=== PATIENT | female | born 1980 | race Caucasian/White ===

== ENCOUNTER 2017-10-29 04:02 | Emergency (ER) | payer SELFPAY ==
[~2017-10-29] VITALS: Ht 154.9 cm; Wt 57.6 kg
--- NOTE | 2017-10-29 04:53 | NUR ---
Dr. Quick at bedside for MSE.
[2017-10-29] MEDS: DICYCLOMINE HCL 10 MG/5 ML UDC LIQ PO ONE (05:02)
[2017-10-29] MEDS ORDERED: DICYCLOMINE HCL 10 MG/5 ML UDC LIQ ONE (05:03)
--- NOTE | 2017-10-29 05:10 | NUR ---
Patient discharged to home in stable conditon. Patient states she is feeling better. Written and verbal after care instructions given. Patient verbalizes understanding of instructions. Patient ambulated out of ER with steady gait, no acute signs of distress, VSS, all belongings taken.
[2017-10-29 05:12] VITALS: BP 112/63
== END 2017-10-29 05:12 | disposition home or self-care (01) ==
LOC: ER 04:08
DX: R10.9 Unspecified abdominal pain (principal); F41.9 Anxiety disorder, unspecified; Z88.8 Allergy status to other drugs, medicaments and biological substances; Z88.5 Allergy status to narcotic agent
CPT/HCPCS: 99284; A4663

== ENCOUNTER 2019-03-03 12:22 | Emergency (ER) | payer BC ==
[~2019-03-03] VITALS: Ht 154.9 cm; Wt 54.9 kg
[2019-03-03] MEDS ORDERED: IBUPROFEN 600 MG TABLET PO ONE (13:00)
[2019-03-03] MEDS ORDERED: IBUPROFEN 600 MG TABLET ONE ×2 (13:07→13:20)
--- NOTE | 2019-03-03 13:28 | NUR ---
Patient discharged to home in stable conditon. Written and verbal after care instructions given. Patient verbalizes understanding of instructions.
[2019-03-03 13:32] LABS: *URINE HCG, QUAL NEGATIVE (NEGATIVE)
== END 2019-03-03 13:28 | disposition home or self-care (01) ==
LOC: ER 12:22
DX: S13.4XXA Sprain of ligaments of cervical spine, initial encounter (principal); S33.5XXA Sprain of ligaments of lumbar spine, initial encounter; M79.10 Myalgia, unspecified site; R51 Headache; M79.601 Pain in right arm; Z88.8 Allergy status to other drugs, medicaments and biological substances; V49.9XXA Car occupant (driver) (passenger) injured in unspecified traffic accident, initial encounter; Y93.89 Activity, other specified; Y92.89 Other specified places as the place of occurrence of the external cause; Y99.8 Other external cause status
CPT/HCPCS: 84703; A4663

== ENCOUNTER 2021-11-28 17:48 | Emergency (ER) | payer BC, OTHER ==
[~2021-11-28] VITALS: Ht 154.9 cm; Wt 56.7 kg
[2021-11-28] MEDS ORDERED: LIOT5TAB11 PO (18:30)
[2021-11-28] MEDS ORDERED: ESCI5TAB PO (18:30)
[2021-11-28] MEDS ORDERED: ONDANSETRON 4 MG/2 ML VIAL ONE (19:12)
[2021-11-28] MEDS ORDERED: ONDANSETRON 4 MG/2 ML VIAL IV ONE (19:15)
[2021-11-28] MEDS ORDERED: IV NORMAL SALINE 1000 ML BAG IV ONE ×2 (19:15→21:30)
[2021-11-28] MEDS ORDERED: diphenhydrAMINE 50 MG/1 ML VIAL ONE (19:42)
[2021-11-28] MEDS ORDERED: diphenhydrAMINE 50 MG/1 ML VIAL IV ONE (19:45)
[2021-11-28 19:59] LABS: *BILIRUBIN,URIN NEGATIVE (NEGATIVE); *BLOOD, URINE NEGATIVE (NEGATIVE); *CLARITY,URINE CLEAR (CLEAR); *COLOR,URINE YELLOW (YELLOW); *KETONES,URINE NEGATIVE (NEGATIVE); *UROBILINOGEN,URINE 0.2 E.U./dl (NORMAL); LEUKOCYTE ESTERASE ,URINE NEGATIVE (NEGATIVE); NITRITE, URINE NEGATIVE (NEGATIVE); UGLUCOSE NEGATIVE (NEGATIVE)
[2021-11-28 20:06] LABS: HEMATOCRIT 36.1 % (31.2-41.9); MEAN CORPUSCULAR HEMOGLOBIN 30.8 uug (24.7-32.8); MEAN CORPUSCULAR VOLUME 90.3 fL (75.5-95.3); PLATELET COUNT (AUTO) 157 K/uL (179-408)
[2021-11-28 20:08] LABS: *URINE HCG, QUAL NEGATIVE (NEGATIVE)
[2021-11-28 20:26] LABS: CREATININE 0.9 mg/dL (0.6-1.3); POTASSIUM 4.4 mmol/L (3.5-5.1)
[2021-11-28 20:32] LABS: BILIRUBIN,DIRECT 0.1 mg/dL (0.0-0.2); BILIRUBIN,TOTAL 0.3 mg/dL (0.2-1.0); TOTAL PROTEIN, SERUM 6.9 g/dL (6.4-8.2)
[2021-11-28] MEDS ORDERED: IOHEXOL 300MG/ML 100 ML INFUS..BTL ONE (20:39)
[2021-11-28] MEDS ORDERED: IV NORMAL SALINE 250 ML IV ONE (20:40)
[2021-11-28] MEDS ORDERED: SWABABLE VALVE TRANSFER SET EA MC ONE (20:40)
[2021-11-28] MEDS ORDERED: DICY20TA11 PO (21:56)
[2021-11-28] MEDS ORDERED: ONDA4TAB5 PO (21:56)
[2021-11-28] MEDS ORDERED: OXYC-128 PO (22:04)
--- NOTE | 2021-11-28 22:09 | NUR ---
Patient discharged to home in stable condition. Written and verbal after care instructions given. Patient verbalizes understanding of instructions. Stressed follow up or return to ER for worsening s/s. pt ambulated with steady gait. denies pain. no SOB. no chest pain. AOx4
[2021-11-28 23:18] VITALS: BP 109/71
== END 2021-11-28 22:12 | disposition home or self-care (01) ==
LOC: ER 18:10
DX: R10.84 Generalized abdominal pain (principal); R19.7 Diarrhea, unspecified; R11.0 Nausea; Z90.49 Acquired absence of other specified parts of digestive tract
CPT/HCPCS: 36415; 74177; 80048; 80076; 81003; 83690; 84703; 85025; 96361; 96374; 99285; J1200; J7040 ×2; Q9967; A4663; J2405

== ENCOUNTER 2024-09-16 08:02 | Emergency (ER) | payer OTHER ==
[~2024-09-16] VITALS: Ht 154.9 cm; Wt 57.6 kg
[~2024-09-16 08:02] MED LIST: DICY20TA11 PO; ESCI5TAB PO; LIOT5TAB11 PO; ONDA4TAB5 PO; OXYC-128 PO
[2024-09-16] MEDS ORDERED: DICY10CA13 PO (09:30)
[2024-09-16 09:32] VITALS: BP 119/72; O2SAT 99
== END 2024-09-16 09:38 | disposition home or self-care (01) ==
LOC: ER 08:13
DX: R10.84 Generalized abdominal pain (principal); R19.7 Diarrhea, unspecified; R50.9 Fever, unspecified; Z79.890 Hormone replacement therapy; Z79.899 Other long term (current) drug therapy; Z88.5 Allergy status to narcotic agent; Z88.7 Allergy status to serum and vaccine; Z90.49 Acquired absence of other specified parts of digestive tract
CPT/HCPCS: A4606; A4663